=== PATIENT | female | born 1970 | race Caucasian/White ===

== ENCOUNTER 2018-06-18 10:14 | Emergency (ER) | payer BC, OTHER ==
[2018-06-18 10:31] VITALS: BP 126/97
--- NOTE | 2018-06-18 10:55 | ED ---
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 Patient is here following the suicide of her son 3 days ago. Patient states that she has been on medication for depression for a long time and has been on 125mg of Zoloft for the past year for it. Patient states that she has been struggling for the past year with a sense of impending doom and also states that her anxiety has been bad. She states that when at work, she was able to stay calm, but at home, her thoughts overwhelmed her. After the of her son, patient states that her medication is barely working and she recently had an anxiety attack involving paranoid thoughts that her family was in imminent danger. Patient denies suicide. - History Of Current Complaint Chief Complaint: EDPsychosocial Time Seen by Provider: 06/18/18 10:37 Hx Obtained From: Patient Onset/Duration: Lasting Days, Still Present, Worse Since - 3 days ago Timing: Constant Severity Currently: Mild Character: Depressed, Anxious Aggravating Factor(s): Recent Stress Alleviating Factor(s): Nothing Associated Signs And Symptoms: Positive: Paranoid Behavior - thoughts Related History: Positive For: Prior Psychiatric Issues - Depression Has Suicidal: Denies: Thoughts Recent Stressor(s): Suicide of Son - Allergies/Home Medications Allergies/Adverse Reactions: Allergies Allergy/AdvReac Type Severity Reaction Status Date / Time CT contrast Allergy Rash Uncoded 06/18/18 10:32 PMH/Surg Hx/FS Hx/Imm Hx Previously Healthy: No Cardiovascular History: Reports: Hx Hypercholesterolemia, Hx Hypertension GI History: Reports: Hx Gastroesophageal Reflux Disease Psychiatric History: Reports: Hx Anxiety, Hx Depression Infectious Disease History: No Infectious Disease History: Denies: Traveled Outside the [place] in Last 30 Days - Family History Known Family History: Positive: Hypertension - Social History Occupation: Employed Full-time Lives: With Family Alcohol Use: Occasionally Hx Substance Use: No Substance Use Type: Reports: None Hx Tobacco Use: Yes - Quit, but restarted habit after of son Smoking Status (MU): Heavy Every Day Tobacco Smoker Review of Systems Negative: Fever Positive: Anxious, Depressed All Other Systems Reviewed And Are Negative: Yes Physical Exam - Summary Physical Exam Summary: VITAL SIGNS: Reviewed. GENERAL: Patient is a well-developed and nourished female who is lying comfortable in the stretcher. Patient is not in any acute respiratory distress. HEAD AND FACE: No signs of trauma. No ecchymosis, hematomas or skull depressions. No sinus tenderness. EYES: PERRLA, EOMI x 2, No injected conjunctiva, no nystagmus. EARS: Hearing grossly intact. Ear canals and tympanic membranes are within normal limits. MOUTH: Oropharynx within normal limits. NECK: Supple, trachea is midline, no adenopathy, no JVD, no carotid bruit, no c- spine tenderness, neck with full ROM. CHEST: Symmetric, no tenderness at palpation LUNGS: Clear to auscultation bilaterally. No wheezing or crackles. CVS: Regular rate and rhythm, S1 and S2 present, no murmurs or gallops appreciated. ABDOMEN: Soft, non-tender. No signs of distention. No rebound no guarding, and no masses palpated. Bowel sounds are normal. EXTREMITIES: FROM in all major joints, no edema, no cyanosis or clubbing. NEURO: Alert and oriented x 3. No acute neurological deficits. Speech is normal and follows commands. SKIN: Dry and warm Triage Information Reviewed: Yes Vital Signs On Initial Exam: Initial Vitals Temp Pulse Resp BP Pulse Ox 98.4 F 105 18 126/97 98 06/18/18 10:24 06/18/18 10:24 06/18/18 10:24 06/18/18 10:24 06/18/18 10:24 Vital Signs Reviewed: Yes Diagnostics - Vital Signs Vital Signs Temp Pulse Resp BP Pulse Ox 06/18/18 10:24 98.4 F 105 18 126/97 98 - Laboratory Result Diagrams: 06/18/18 11:29 06/18/18 11:29 Lab Statement: Any lab studies that have been ordered have been reviewed, and results considered in the medical decision making process. Course/Dx - Course Assessment/Plan: Patient is a 47-year-old female who presents to the emergency department complaining of anxiety and being unable to sleep. The patient reports that her son committed suicide 3 days ago, and since then, the patient is getting worse with her chronic depression and anxiety. She doesnt have any suicidal or homicidal ideation. Patient is medically clear. Patient was assessed by Kaylyn Parra. Dr. Young recommends for the patient to be discharged home with follow-up with her psychiatrist. Patient is hemodynamically stable alert and oriented x 3. - Differential Dx/Clinical Impression Provider Diagnosis: Depression - Physician Notifications Discussed Care Of Patient With: Kaylyn Parra - mental health pot sander Time Discussed With Above Provider: 14:45 Instructed by Provider To: Other - I consulted with mental health pot sander Kaylyn, who reports that the patient will be discharged per Dr. Young, psychiatrist. The patient will follow up with planned services. Her current Zoloft prescription will be increased to 150mg PID, and she will receive a new prescription for Busprione 15mg BID. She is diagnosed with depression. Patient Is Medically Stable For: Psych Evaluation Discharge - Sign-Out/Discharge Documenting (check all that apply): Patient Departure - Patient will be discharged home. Patient Received Moderate/Deep Sedation with Procedure: No - Discharge Plan Condition: Stable Disposition: HOME Patient Education Materials: Depression (ED) Referrals: Kellee SANCHEZ,Jm Calderón [Primary Care Provider] - Additional Instructions: Follow up with your services as planned. RETURN TO THE ED FOR ANY WORSENING OR NEW SYMPTOMS. - Billing Disposition and Condition Condition: STABLE Disposition: Home - Attestation Statements Document Initiated by Alisaibe: Yes Documenting Scribe: Alexys Musa Provider For Whom Óscar is Documenting (Include Credential): Sean Arizmendi MD Scribe Attestation: Alexys Real scribed for Sean Arizmendi MD on 06/18/18 at 1708. Scribe Documentation Reviewed: Yes Provider Attestation: The documentation as recorded by the Alexys boone accurately reflects the service I personally performed and the decisions made by , Sean Arizmendi MD Status of Scribe Document: Ready
[2018-06-18 11:39] LABS: ABS Basophils 0.1 10^3/ul (0-0.2); ABS Eosinophils 0.1 10^3/ul (0-0.6); ABS Lymphocytes 2.2 10^3/ul (1.0-4.8); ABS Monocytes 0.5 10^3/ul (0-0.8); ABS Neutrophils 4.2 10^3/ul (1.5-7.7); ABS Nucleated RBC 0 10^3/ul; Eosinophil % 1.3 %; Hematocrit 41 % (33-41); Lymphocyte % 31.9 %; Mean Corpuscular HGB Conc 34 g/dL (31-36); Mean Corpuscular Hemoglobin 30 pg (27-31); Mean Corpuscular Volume 89 fL (80-97); Mean Platelet Volume 7.9 fL (7.4-10.4); Nucleated Red Blood Cells % 0.2; Platelet Count 297 10^3/uL (150-450); Red Blood Count 4.61 10^6 /uL (3.70-4.87); Red Cell Distribution Width 13 % (10.5-15)
[2018-06-18 11:56] LABS: ALT 17 U/L (7-52); AST 15 U/L (13-39); Albumin 4.7 g/dL (3.2-5.2); Albumin/Globulin Ratio 1.3 (1-3); Alkaline Phosphatase 77 U/L (34-104); Anion Gap 8 mmol/L (2-11); Blood Urea Nitrogen 21 mg/dL (6-24); CO2 Carbon Dioxide 27 mmol/L (22-32); Calcium 9.8 mg/dL (8.6-10.3); Chloride 104 mmol/L (101-111); EGFR African American 87.2 (>60); EGFR Non-African American 72.1 (>60); Globulin 3.5 g/dL (2-4); Glucose 110 mg/dL (70-100); Potassium 4.3 mmol/L (3.5-5.0); Sodium 139 mmol/L (135-145); Total Protein 8.2 g/dL (6.4-8.9)
[2018-06-18 12:16] LABS: Acetaminophen < 15 mcg/mL; Alcohol < 10 mg/dL (<10); Salicylate < 2.50 mg/dL (<30)
[2018-06-18 12:27] LABS: Urine Appearance Cloudy; Urine Bacteria Absent (Absent); Urine Bilirubin Negative (Negative); Urine Blood 1+ (Negative); Urine Color Yellow; Urine Glucose Negative (Negative); Urine Ketones Negative (Negative); Urine Nitrite Negative (Negative); Urine Protein Negative (Negative); Urine Red Blood Cell 1+(3-5/hpf) (Absent); Urine Squamous Epithelial Cell Present (Absent); Urine Urobilinogen Positive (Negative); Urine White Blood Cell Absent (Absent)
[2018-06-18 12:30] LABS: TSH (Thyroid Stimulating Horm) 1.23 mcIU/mL (0.34-5.60)
[2018-06-18 12:33] LABS: Urine Benzodiazepine Screen None Detected (None Detect); Urine Opiates Screen Presumptive Positive (None Detect)
--- NOTE | 2018-06-18 15:00 | PN ---
ED Flex Patient Progress Note Date of Service: 06/18/18 CC " My son shot himself" Patient seen with Prieto the psychiatric tobacco stemmer. The patient was brought to [facility] by herself with her son. She reported that her 14 year old son recently shot himself and that she has been anxious. 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 She is not requesting medications by name and reported that she doesnt drink alcohol to cope with things. Denied access to firearms or stockpiles of medications. She said that she would never end her life by suicide because she loves her family too much. Patient noted I do not need to be in the psychiatry unit. The patient denied suicidal and or homicidal ideation intent or plan. The patient denied auditory and/ or visual hallucinations. MDD Reported sleeping more and not interacting with others as much. She reported having low moods and decreased concentration. Denied recurrent thoughts of . Denied feeling no purpose in life or would be better off . Anxiety Denied having symptoms of anxiety such as having times where heart feels that it is beating out of chest , sweaty palms, or shallow breathing. Denied having uncomfortable or intrusive thoughts. Denied feeling restless, high strung, or worrying too much most of the time. Bipolar Denied symptoms of amando such as having many ideas at once. Denied increased talkativeness where no one can interrupt. Denied feeling irritable most of the time while having an persistent abundance of energy most of the day without the use of energy drinks, stimulants, or recreational drug use. Denied an increase in intensity in goal directed activities. Denied having the decreased need to sleep for days , having prolonged elevated heighted mood , or feeling on top of the world. Denied impulsive risky sexual encounters. Denied spending money recklessly , going on spending sprees wiping out savings. Denied impulsively traveling out of town or country, having super henriquez, and unrealistic wealth or fame. Psychosis Does not endorse hearing things that other people do not hear or seeing things other people do not see. Denied feeling that TV is making references. Denied feeling that people are spying , following , or reading their thoughts. Phobias: Patient denied having excessive fear of a particular thing or situation. Eating disorders: Patient denied having excessive eating habits or feelings of guilt after eating. Denied repeated episodes of self induced vomiting after eating. PAST PSYCHIATRIC HISTORY: Prior Diagnosis : Major depressive disorder History of past Psychiatric Hospitalizations: No prior psychiatric admission. History of past suicide/homicide attempts : Denied past suicide attempts. Denied past homicidal incidents. Outpatient follow-up: [facility] Medications: Past trials of medications include zoloft 125mg and hydroxyzine 10mg PRN. She takes oxycontin for back pain. Guardianship: None. FAMILY HISTORY: - Suicide: Uncle from suicide. - Mental illness: uncle had depression - Substance abuse: Denied substance abuse among family members. SUBSTANCE ABUSE HISTORY: Denied using alcohol, tobacco, heroin and cocaine other illicit substances. Denied abusing pills not prescribed . Denied past Substance abuse treatment. SOCIAL HISTORY: Works as a nurse in a correctional institution. She is and has 3 sons one who by suicide. - Legal history: Denied - service history: Denied PAST MEDICAL HISTORY: Back and knee pain - Allergies: contrast Physical Exam: Please see ED note Mental Status Exam on Admission APPEARANCE : 47 year old female who appears stated age. Patient is not malodourous, and appears to have fair hygiene and grooming. BEHAVIOR: Cooperative , calm EYE CONTACT: Fair PSYCHOMOTOR ACTIVITY: No psychomotor agitation or retardation. MOVEMENTS: No abnormal movements observed. SPEECH : Normal rate, rhythm, volume and tone. MOOD : " sad" AFFECT : Type is anxious, Range is full Mood congruent Stable THOUGHT PROCESS: formulated and organized in a logical, linear goal directed manner. No flight of ideas , neologism (made up words) , perseveration , tangential , loose associations , or circumstantiality. THOUGHT CONTENT: no delusions, preoccupations, obsessions, phobias or preoccupations. PERCEPTION: No current auditory or visual hallucinations. Doesnt appear to be responding to internal cues. No evidence of depersonalization , de-realization, or illusions SUICIDALITY Denied suicidal ideation, intent or plan. HOMICIDALITY Denied homicidal ideation, intent or plan. Insight/judgment: Good insight and judgment ORIENTATION: Oriented to self, location, and time. Diagnosis on Admission: Major depressive disorder. Assessment: 47 year old female with history of depression came to the emergency department with anxiety and increasing depression after her son from shooting himself. Plan # The patient doesnt meet criteria for psychiatric inpatient admission # Increase zoloft to 150mg daily # 14 day supply #Provided buspar 15mg BID for anxiety # 14 day supply RX called in to [facility] in [facility], EMR E script was not available. Has a Follow up appointment June 28 at [facility] # Patient advised to attend follow up appointments. Patient instructed of the 18/09 availability of the emergency room and to immediately call 911 should any safety concerns arise. #Patient has grief support in place by crisis team via her work Risk factors: History of mental illness. Recent loss of son by suicide. Protective factors: Currently no suicidal ideation, intent or plan. , Has children. No prior history of suicide attempt. Has strong support system. No history of service. Currently no feelings of hopelessness, not in an occupation of social isolation, doesnt have multiple medical conditions, doesnt have access to firearms. Doesnt have command hallucinations and or psychotic features at this time. No history of substance abuse. No history of alcohol abuse. Currently future orientated. Patient engaged in treatment and compliant with medication. Vital Signs Temp Pulse Resp BP Pulse Ox 98.4 F 105 18 126/97 98 06/18/18 10:24 06/18/18 10:24 06/18/18 10:24 06/18/18 10:24 06/18/18 10:24 Lab Results - Entire Visit 06/18/18 06/18/18 06/18/18 12:05 12:05 11:29 WBC RBC Hgb Hct MCV MCH MCHC RDW Plt Count MPV Neut % (Auto) Lymph % (Auto) Major % (Auto) Eos % (Auto) Baso % (Auto) Absolute Neuts (auto) Absolute Lymphs (auto) Absolute Monos (auto) Absolute Eos (auto) Absolute Basos (auto) Absolute Nucleated RBC Nucleated RBC % Sodium 139 Potassium 4.3 Chloride 104 Carbon Dioxide 27 Anion Gap 8 BUN 21 Creatinine 0.84 Est GFR ( Amer) 87.2 Est GFR (Non-Af Amer) 72.1 BUN/Creatinine Ratio 25.0 H Glucose 110 H Calcium 9.8 Total Bilirubin 0.60 AST 15 ALT 17 Alkaline Phosphatase 77 Total Protein 8.2 Albumin 4.7 Globulin 3.5 Albumin/Globulin Ratio 1.3 TSH 1.23 Urine Color Yellow Urine Appearance Cloudy Urine pH 7.0 Ur Specific [place] 1.020 Urine Protein Negative Urine Ketones Negative Urine Blood 1+ A Urine Nitrate Negative Urine Bilirubin Negative Urine Urobilinogen Positive A Ur Leukocyte Esterase Negative Urine WBC (Auto) Absent Urine RBC (Auto) 1+(3-5/hpf) A Ur Squamous Epith Cells Present A Urine Bacteria Absent Urine Glucose Negative Salicylates < 2.50 Urine Opiates Screen Presumptive positive A Acetaminophen < 15 Ur Barbiturates Screen None detected Ur Phencyclidine Scrn None detected Ur Amphetamines Screen None detected U Benzodiazepines Scrn None detected Urine Cocaine Screen None detected U Cannabinoids Screen None detected Serum Alcohol < 10 06/18/18 11:29 WBC 7.0 RBC 4.61 Hgb 14.0 Hct 41 MCV 89 MCH 30 MCHC 34 RDW 13 Plt Count 297 MPV 7.9 Neut % (Auto) 59.2 Lymph % (Auto) 31.9 Major % (Auto) 6.8 Eos % (Auto) 1.3 Baso % (Auto) 0.8 Absolute Neuts (auto) 4.2 Absolute Lymphs (auto) 2.2 Absolute Monos (auto) 0.5 Absolute Eos (auto) 0.1 Absolute Basos (auto) 0.1 Absolute Nucleated RBC 0 Nucleated RBC % 0.2 Sodium Potassium Chloride Carbon Dioxide Anion Gap BUN Creatinine Est GFR ( Amer) Est GFR (Non-Af Amer) BUN/Creatinine Ratio Glucose Calcium Total Bilirubin AST ALT Alkaline Phosphatase Total Protein Albumin Globulin Albumin/Globulin Ratio TSH Urine Color Urine Appearance Urine pH Ur Specific [place] Urine Protein Urine Ketones Urine Blood Urine Nitrate Urine Bilirubin Urine Urobilinogen Ur Leukocyte Esterase Urine WBC (Auto) Urine RBC (Auto) Ur Squamous Epith Cells Urine Bacteria Urine Glucose Salicylates Urine Opiates Screen Acetaminophen Ur Barbiturates Screen Ur Phencyclidine Scrn Ur Amphetamines Screen U Benzodiazepines Scrn Urine Cocaine Screen U Cannabinoids Screen Serum Alcohol
== END 2018-06-18 15:39 | disposition home or self-care (01) ==
LOC: ED 10:14
DX: F32.9 Major depressive disorder, single episode, unspecified (principal); I10 Essential (primary) hypertension; E78.00 Pure hypercholesterolemia, unspecified; K21.9 Gastro-esophageal reflux disease without esophagitis; F17.210 Nicotine dependence, cigarettes, uncomplicated; Z91.041 Radiographic dye allergy status
CPT/HCPCS: 36415; 80053; 80307; 80320; 80329; 81003; 81015; 84443; 85025; 99283; G0480